=== PATIENT | male | born 1940 | race Caucasian/White ===

== ENCOUNTER 2016-06-17 08:04 | Outpatient (CLI) | payer MEDICARE, OTHER | END 2016-06-17 08:05 | disposition home or self-care (01) | DX: E78.5 Hyperlipidemia, unspecified (principal); N18.9 Chronic kidney disease, unspecified; I10 Essential (primary) hypertension ==

== ENCOUNTER 2016-06-17 08:06 | Outpatient (CLI) | payer MEDICARE, OTHER | END 2016-06-17 08:07 | disposition home or self-care (01) | DX: N40.1 Benign prostatic hyperplasia with lower urinary tract symptoms (principal); N20.0 Calculus of kidney; R31.0 Gross hematuria; R97.20 Elevated prostate specific antigen [PSA]; R33.9 Retention of urine, unspecified; R35.1 Nocturia ==

== ENCOUNTER 2017-03-19 08:00 | Outpatient (CLI) | payer MEDICARE, OTHER ==
[2017-03-19 12:55] LABS: BASOPHILS % (AUTO) 0.3 %; EOSINOPHILS # (AUTO) 0.1 10^3/uL (0.0-0.7); EOSINOPHILS % (AUTO) 2.2 %; HGB - HEMOGLOBIN 13.1 g/dL (14.0-18.0); LYMPHOCYTES # (AUTO) 1.9 10^3/uL (1.5-3.5); LYMPHOCYTES % (AUTO) 36.1 %; MEAN CORPUSCULAR HEMOGLOBIN 30.5 pg (27.0-31.0); MEAN CORPUSCULAR HGB CONC 33.3 g/dL (32.0-36.0); MEAN CORPUSCULAR VOLUME 91.6 fL (80.0-94.0); MEAN PLATELET VOLUME 8.9 fL (7.4-11.4); MONOCYTES # (AUTO) 0.3 10^3/uL (0.0-1.0); MONOCYTES % (AUTO) 5.3 %; NEUTROPHILS % (AUTO) 56.1 %; PLT - PLATELET COUNT 185 10^3/uL (130-450); RED BLOOD COUNT 4.31 10^6/uL (4.70-6.10); RED CELL DISTRIBUTION WIDTH 14.8 % (12.0-15.0); WHITE BLOOD COUNT 5.4 x10^3/uL (4.8-10.8)
[2017-03-19 13:00] LABS: ALBUMIN/GLOBULIN RATIO 1.3 (1.0-2.2); ALKALINE PHOSPHATASE 72 IU/L (42-121); ALT ALANINE AMINOTRANSFERASE 15 IU/L (10-60); AST ASPARTATE AMINOTRANSFERASE 19 IU/L (10-42); BILIRUBIN,TOTAL 0.5 mg/dL (0.2-1.0); BUN - BLOOD UREA NITROGEN 24 mg/dL (6-20); CALCIUM 8.6 mg/dL (8.5-10.3); CARBON DIOXIDE - CO2 24 mmol/L (21-32); CHLORIDE 108 mmol/L (101-111); CHOL/HDL RATIO 3.7 (<5.0); CHOLESTEROL 152 mg/dL; CREATININE 1.3 mg/dL (0.6-1.2); GFR - MDRD 54 (>89); GLUCOSE 101 mg/dL (70-100); HDL CHOLESTEROL 41 mg/dL; LDL CHOLESTEROL,CALCULATED 94 mg/dL; LDL/HDL RATIO 2.3 (<3.6); SODIUM 136 mmol/L (135-145); TOTAL PROTEIN 7.2 g/dL (6.7-8.2); VLDL CHOLESTEROL 17 mg/dL
== END 2017-03-19 08:01 | disposition home or self-care (01) ==
LOC: LAB.WCP 08:00
PROVIDERS: ATTEND Family Medicine
DX: I10 Essential (primary) hypertension (principal); R97.20 Elevated prostate specific antigen [PSA]; E78.5 Hyperlipidemia, unspecified
CPT/HCPCS: 36415; 80053; 80061; 83721; 84153; 85025

== ENCOUNTER 2018-02-19 14:14 | Emergency (ER) | payer MEDICARE, OTHER ==
--- NOTE | 2018-02-19 14:47 | XRAY Report ---
Reason: cough Procedure Date: 02/19/2018 Accession Number: [id number] / [id number] Procedure: XR - Chest 2 View X-Ray CPT Code: 81322 FULL RESULT: EXAM: CHEST RADIOGRAPHY EXAM DATE: 02/19/2018 02:38 PM. CLINICAL HISTORY: Cough. COMPARISON: None. TECHNIQUE: 2 views. FINDINGS: Lungs/Pleura: No focal opacities evident. No pleural effusion. No pneumothorax. Normal volumes. Mediastinum: Heart and mediastinal contours are unremarkable. Other: Intact median sternotomy wires. Incompletely included dual posterior fixation rods of the spine. Anterior wedging compression of L1, age indeterminate. IMPRESSION: No infiltrates. RADIA
--- NOTE | 2018-02-19 15:51 | ED Physician Documentation ---
PD HPI URI - Stated complaint Stated Complaint: CRACKLING WHEN COUGHING - Chief complaint Chief Complaint: Resp - History obtained from History obtained from: Patient - History of Present Illness Timing - onset: How many days ago (4) Timing duration: Days (4) Timing details: Still present Similar symptoms before: Has not had sx before - Additional information Additional information: The patient is a 78-year-old male who presents with cough of 4 days duration. His cough is productive of sputum. He denies fever, shortness of breath, or chest pain. No other family members are ill with similar symptoms. Review of Systems Constitutional: denies: Fever Ears: denies: Ear pain Nose: denies: Congestion Throat: denies: Sore throat Cardiac: denies: Chest pain / pressure Respiratory: reports: Cough. denies: Dyspnea GI: denies: Abdominal Pain, Nausea, Vomiting : denies: Dysuria Skin: denies: Rash Musculoskeletal: denies: Extremity swelling Neurologic: denies: Headache PD PAST MEDICAL HISTORY - Past Medical History Cardiovascular: Hypertension, Coronary artery disease Respiratory: None Endocrine/Autoimmune: None - Present Medications Home Medications: Ambulatory Orders Medication Instructions Recorded Confirmed Aspirin 02/19/18 02/19/18 Metoprolol Succinate 02/19/18 Naproxen Sodium [Aleve] 02/19/18 Rosuvastatin Calcium [Crestor] 02/19/18 Tamsulosin [Flomax] 02/19/18 guaiFENesin/CODEINE [Robitussin AC] 5 - 10 ml PO Q6H PRN #20 udc 02/19/18 - Allergies Allergies/Adverse Reactions: Allergies Allergy/AdvReac Type Severity Reaction Status Date / Time lisinopril Allergy Rash Verified 02/19/18 14:26 Iodinated Contrast- Oral and AdvReac Rash Verified 02/19/18 14:26 IV Dye - Social History Does the pt smoke?: No PD ED PE NORMAL - Vitals Vital signs reviewed: Yes (normal) - General General: Alert and oriented X 3, Well developed/nourished - HEENT HEENT: Atraumatic, EOMI, Pharynx benign, Other (Decreased hearing ability.) - Neck Neck: No adenopathy, No JVD - Cardiac Cardiac: RRR - Respiratory Respiratory: Other (Expiratory wheezes are noted bilaterally, without rales or rhonchi.) - Abdomen Abdomen: Soft, Non tender - Back Back: No CVA TTP - Derm Derm: No rash - Extremities Extremities: No edema, No calf tenderness / cord - Neuro Neuro: Alert and oriented X 3, No motor deficit, Normal speech Results - Vitals Vitals: Oxygen O2 Source Room air - Rads (name of study) CXR Radiology: Prelim report reviewed, EMP read contemporaneously, See rad report (No infiltrates.) PD MEDICAL DECISION MAKING - ED course Complexity details: reviewed results, re-evaluated patient, considered differential, d/w patient, d/w family ED course: The patient's presentation is most consistent with acute asthmatic bronchitis. Chest x-ray reveals no evidence of pneumonia or congestive heart failure. I doubt pulmonary embolus. Treatment in the emergency department included administration of dexamethasone 10 mg orally and DuoNeb nebulizer. Nebulizer had very slight impact on the patient's symptoms. He continues to have faint expiratory wheezes. It is unlikely that further treatment with albuterol would be of significant benefit. Antibiotics are not clinically indicated since this is most likely a viral infection. I discussed with the patient and his the expected course of illness, symptomatic treatment and outpatient follow-up, as well as potentially worrisome signs or symptoms that should prompt reevaluation in the emergency department. Departure - Departure Disposition: 01 Home, Self Care Clinical Impression: Acute bronchitis Qualifiers: Bronchitis organism: unspecified organism Qualified Code(s): J20.9 - Acute bronchitis, unspecified Condition: Stable Instructions: ED Bronchitis Asthmatic Follow-Up: BERNARD DONAHUE MD [Primary Care Provider] - Prescriptions: guaiFENesin/CODEINE [Robitussin AC] 5 - 10 ml PO Q6H PRN #20 udc PRN Reason: Cough Comments: You can use Tylenol or ibuprofen if needed for fever or discomfort. You can use Robitussin AC as prescribed if needed for cough. Follow-up with your primary physician within 2 weeks. Return to the emergency department if you develop increasing difficulty breathing, or otherwise worsening symptoms. Discharge Date/Time: 02/19/18 16:48
[2018-02-19] MEDS: IPRATROPIUM/ALBUTEROL 3 ML NEB INH STA (16:13)
[2018-02-19] MEDS ORDERED: CHERRY SYRUP 10 ML UDC PO ONE (16:41)
[2018-02-19] MEDS: DEXAMETHASONE 10 MG/ML VIAL PO STA (16:44)
[2018-02-19 16:46] VITALS: BP 114/81
== END 2018-02-19 16:48 | disposition home or self-care (01) ==
LOC: ED 14:14
DX: J20.9 Acute bronchitis, unspecified (principal); I10 Essential (primary) hypertension; Z79.82 Long term (current) use of aspirin
CPT/HCPCS: 71046; 94640; 99283; A9270

== ENCOUNTER 2018-03-05 09:35 | Outpatient (CLI) | payer MEDICARE, OTHER ==
[2018-03-05 13:39] LABS: BILIRUBIN,URINE NEGATIVE (NEGATIVE); GLUCOSE, URINE (UA) NEGATIVE (NEGATIVE); KETONES,URINE (UA) NEGATIVE (NEGATIVE); LEUKOCYTE ESTERASE, URINE NEGATIVE (NEGATIVE); NITRITE,URINE NEGATIVE (NEGATIVE); OCCULT BLOOD,URINE NEGATIVE (NEGATIVE); PROTEIN,URINE NEGATIVE (NEGATIVE); UROBILINOGEN,URINE 0.2 (NORMAL) E.U./dL (NORMAL)
[2018-03-05 13:51] LABS: BACTERIA,URINE Rare /HPF (None Seen); CLARITY,URINE CLEAR (CLEAR); RBC,URINE 0-5 /HPF (0-5); SQUAMOUS EPITHELIAL CELL,UR RARE Squamous (<= Few)
[2018-03-05 14:01] LABS: ALBUMIN 3.8 g/dL (3.2-5.5); ALBUMIN/GLOBULIN RATIO 1.1 (1.0-2.2); ALKALINE PHOSPHATASE 82 IU/L (42-121); ALT ALANINE AMINOTRANSFERASE 23 IU/L (10-60); AST ASPARTATE AMINOTRANSFERASE 23 IU/L (10-42); BILIRUBIN,TOTAL 0.7 mg/dL (0.2-1.0); BUN - BLOOD UREA NITROGEN 18 mg/dL (6-20); CALCIUM 8.6 mg/dL (8.5-10.3); CARBON DIOXIDE - CO2 23 mmol/L (21-32); CHLORIDE 105 mmol/L (101-111); CHOL/HDL RATIO 4.1 (<5.0); CHOLESTEROL 156 mg/dL; CREATININE 1.3 mg/dL (0.6-1.2); GFR - MDRD 53 (>89); GLUCOSE 102 mg/dL (70-100); HDL CHOLESTEROL 38 mg/dL; LDL CHOLESTEROL,CALCULATED 97 mg/dL; LDL/HDL RATIO 2.6 (<3.6); SODIUM 137 mmol/L (135-145); TOTAL PROTEIN 7.2 g/dL (6.7-8.2); VLDL CHOLESTEROL 21 mg/dL
== END 2018-03-05 23:59 | disposition home or self-care (01) ==
LOC: LAB.WCP 09:35
PROVIDERS: ATTEND Family Medicine
DX: I10 Essential (primary) hypertension (principal); C61 Malignant neoplasm of prostate; E78.5 Hyperlipidemia, unspecified; I25.10 Atherosclerotic heart disease of native coronary artery without angina pectoris
CPT/HCPCS: 36415; 80053; 80061; 81001; 83721; 84153

== ENCOUNTER 2023-05-05 07:16 | Outpatient (CLI) | payer MEDICARE, OTHER | END 2023-05-05 23:59 | disposition short-term general hospital (02) | LOC: EMS 07:16 | DX: R07.89 Other chest pain (principal); I44.0 Atrioventricular block, first degree | CPT/HCPCS: A0425; A0427; A0888 ==

== ENCOUNTER 2023-10-25 08:15 | Outpatient (CLI) | payer MEDICARE, OTHER | END 2023-10-25 23:59 | disposition EMS.NT | LOC: EMS 08:15 | DX: K59.00 Constipation, unspecified (principal) ==

== ENCOUNTER 2023-11-02 08:45 | Emergency (ER) | payer MEDICARE, OTHER ==
[2023-11-02 10:11] LABS: BASOPHILS % (AUTO) 0.3 %; EOSINOPHILS # (AUTO) 0.1 10^3/uL (0.0-0.7); EOSINOPHILS % (AUTO) 0.7 %; HCT - HEMATOCRIT 38.4 % (42.0-52.0); HGB - HEMOGLOBIN 12.7 g/dL (14.0-18.0); LYMPHOCYTES # (AUTO) 1.1 10^3/uL (1.5-3.5); LYMPHOCYTES % (AUTO) 11.6 %; MEAN CORPUSCULAR HGB CONC 33.1 g/dL (32.0-36.0); MEAN CORPUSCULAR VOLUME 90.8 fL (80.0-94.0); MEAN PLATELET VOLUME 9.4 fL (7.4-11.4); MONOCYTES # (AUTO) 0.6 10^3/uL (0.0-1.0); MONOCYTES % (AUTO) 6.4 %; NEUTROPHILS # (AUTO) 7.7 10^3/uL (1.5-6.6); NEUTROPHILS % (AUTO) 80.6 %; PLT - PLATELET COUNT 334 10^3/uL (130-450); RED BLOOD COUNT 4.23 10^6/uL (4.70-6.10); RED CELL DISTRIBUTION WIDTH 14.5 % (12.0-15.0); WHITE BLOOD COUNT 9.5 x10^3/uL (4.8-10.8)
[2023-11-02 10:24] LABS: ALBUMIN 3.7 g/dL (3.2-5.5); BILIRUBIN,TOTAL 0.5 mg/dL (0.2-1.0); CALCIUM 9.1 mg/dL (8.5-10.3); CREATININE 2.7 mg/dL (0.6-1.3); POTASSIUM 4.5 mmol/L (3.5-4.5); TOTAL PROTEIN 7.4 g/dL (6.4-8.9)
[2023-11-02 11:55] LABS: BILIRUBIN,URINE NEGATIVE (NEGATIVE); GLUCOSE, URINE (UA) NEGATIVE (NEGATIVE); KETONES,URINE (UA) NEGATIVE (NEGATIVE); LEUKOCYTE ESTERASE, URINE SMALL (NEGATIVE); NITRITE,URINE NEGATIVE (NEGATIVE); OCCULT BLOOD,URINE TRACE-INTA (NEGATIVE); PROTEIN,URINE NEGATIVE (NEGATIVE); UROBILINOGEN,URINE 0.2 (NORMAL) E.U./dL (NORMAL)
[2023-11-02 11:56] LABS: CLARITY,URINE CLEAR (CLEAR)
[2023-11-02 12:00] LABS: BACTERIA,URINE Few /HPF (None Seen); RBC,URINE 0-5 /HPF (0-5); SQUAMOUS EPITHELIAL CELL,UR NONE SEEN (<= Few); WBC CLUMPS,URINE PRESENT; WBC,URINE 0-3 /HPF (0-3)
--- NOTE | 2023-11-02 12:00 | ED Physician Documentation ---
History of Present Illness - Stated complaint Stated Complaint: ABD PX, - Chief complaint Chief Complaint: Abd Pain - Additonal information Additional information: Patient is an 83-year-old male presenting to the emergency department with s ymptoms of urinary retention. Patient has history of intermittent urinary retention secondary to enlarged prostate. Patient is to follow-up with urology but has not scheduled an appointment. Patient is an 83-year-old male presenting to the emergency department and has been on Keflex since Thursday after having a Bundy catheter removed after having urinary retention secondary to constipation that he was diagnosed with in urgent care last week. Patient had Bundy catheter removed after approximately 5 days. Patient was seen at [facility] and urgent care for these symptoms. He presents here to the emergency department today for persistent urinary retention. He has been compliant with his antibiotics of Keflex twice daily. Patient has history of intermittent urinary retention in the past. He denies any blood in his urine he has been having dribbling of urination and dysuria but denies any flank pain or fevers associated with his symptoms. PD PAST MEDICAL HISTORY - Past Medical History Past Medical History: Yes Cardiovascular: Hypertension, Coronary artery disease Respiratory: None Neuro: None Endocrine/Autoimmune: None GI: None : None HEENT: None Psych: None Musculoskeletal: Osteoarthritis Derm: None - Past Surgical History Past Surgical History: Yes Ortho: Hip replacement, Spine surgery, Other Cardiovascular: CABG - Present Medications Home Medications: Ambulatory Orders Medication Instructions Recorded Confirmed Aspirin 1 tab PO DAILY 02/19/18 11/02/23 Metoprolol Succinate 1 tab PO BID 02/19/18 11/02/23 Rosuvastatin Calcium [Crestor] 1 tab PO DAILY 02/19/18 11/02/23 Tamsulosin [Flomax] 1 cap PO DAILY 02/19/18 11/02/23 Acetaminophen [Tylenol] 1 tab PO PRN PRN 11/02/23 11/02/23 Ciprofloxacin HCl [Cipro] 500 mg PO BID 3 Days #6 tablet 11/02/23 Ezetimibe [Zetia] 1 tab PO DAILY 11/02/23 11/02/23 Omeprazole 1 tab PO DAILY 11/02/23 11/02/23 Tamsulosin [Flomax] 1 cap PO DAILY 11/02/23 11/02/23 cephALEXin [Keflex] 1 cap PO BID 11/02/23 11/02/23 traMADol [Ultram] 1 tab PO DAILY 11/02/23 11/02/23 - Allergies Allergies/Adverse Reactions: Allergies Allergy/AdvReac Type Severity Reaction Status Date / Time lisinopril Allergy Rash Verified 11/02/23 09:09 morphine Allergy Rash Verified 11/02/23 09:09 Iodinated Contrast Media AdvReac Rash Verified 11/02/23 09:09 [Iodinated Contrast- Oral and IV Dye] - Social History Does the pt smoke?: No Smoking Status: Never smoker Does the pt drink ETOH?: No Does the pt have substance abuse?: No - Immunizations Immunizations are current?: Yes - POLST Patient has POLST: No PD ED PE NORMAL - Vitals Vital signs reviewed: Yes - General General: Alert and oriented X 3 - HEENT HEENT: Atraumatic, Pharynx benign - Neck Neck: Supple, no meningeal sign - Cardiac Cardiac: RRR, No murmur, No gallop, No rub - Respiratory Respiratory: No respiratory distress, Clear bilaterally - Abdomen Abdomen: Normal bowel sounds, Soft, Other (Reproducible lower pelvic tenderness) - Derm Derm: Normal color, Warm and dry, No rash - Extremities Extremities: No deformity - Neuro Neuro: Alert and oriented X 3 Eye Opening: Spontaneous Motor: Obeys Commands Verbal: Oriented GCS Score: 15 Results - Vitals Vitals: Vital Signs - 24 hr 11/02/23 11/02/23 11/02/23 09:09 11:13 13:13 Temperature 36.8 C Heart Rate 69 86 62 Respiratory 16 16 18 Rate Blood Pressure 136/68 H 154/88 H 162/86 H O2 Saturation 95 100 96 Oxygen O2 Source Room air - Labs Labs: Laboratory Tests 11/02/23 11/02/23 11/02/23 10:04 10:04 11:42 WBC 9.5 RBC 4.23 L Hgb 12.7 L Hct 38.4 L MCV 90.8 MCH 30.0 MCHC 33.1 RDW 14.5 Plt Count 334 MPV 9.4 Neut # (Auto) 7.7 H Lymph # (Auto) 1.1 L [place] # (Auto) 0.6 Eos # (Auto) 0.1 Baso # (Auto) 0.0 Absolute Nucleated RBC 0.00 Nucleated RBC % 0.0 Sodium 131 L Potassium 4.5 Chloride 102 Carbon Dioxide 20 L Anion Gap 9.0 BUN 27 H Creatinine 2.7 H Estimated GFR (MDRD) 23 L Glucose 139 H Calcium 9.1 Total Bilirubin 0.5 AST 13 ALT 14 Alkaline Phosphatase 88 Total Protein 7.4 Albumin 3.7 Globulin 3.7 Albumin/Globulin Ratio 1.0 Lipase 19 Urine Color LT. YELLOW Urine Clarity CLEAR Urine pH 6.0 Ur Specific [place] <=1.005 Urine Protein NEGATIVE Urine Glucose (UA) NEGATIVE Urine Ketones NEGATIVE Urine Occult Blood TRACE-INTA Urine Nitrite NEGATIVE Urine Bilirubin NEGATIVE Urine Urobilinogen 0.2 (NORMAL) Ur Leukocyte Esterase SMALL H Urine RBC 0-5 Urine WBC 0-3 Urine WBC Clumps PRESENT Ur Squamous Epith Cells NONE SEEN Urine Bacteria Few Ur Microscopic Review INDICATED Urine Culture Comments INDICATED PD Medical Decision Making - ED course Complexity details: reviewed old records, reviewed results ED course: Patient is an 83-year-old male presenting to the emergency department and has been on Keflex since Thursday after having a Bundy catheter removed after having urinary retention secondary to constipation that he was diagnosed with in urgent care last week. Patient had Bundy catheter removed after approximately 5 days. Patient was seen at [facility] and urgent care for these symptoms. He presents here to the emergency department today for persistent urinary retention. He has been compliant with his antibiotics of Keflex twice daily. Patient has history of intermittent urinary retention in the past. He denies any blood in his urine he has been having dribbling of urination and dysuria but denies any flank pain or fevers associated with his symptoms.Vital stable on arrival patient is afebrile nontachycardic reproducible pelvic tenderness but no CVA tenderness. Normal active bowel sounds on auscultation.Basic labs obtained here in the emergency department showed no significant leukocytosis however there does appear to be elevated creatinine level at 2.7. Patient's baseline obtained from [facility] records after request shows creatinine of 1.8. Patient's creatinine elevated most likely secondary to urinary obstruction reassuring given no flank pain and no blood in urine no concerning findings for stones at this time. Additionally no unable to obtain records for urine cultures as no culture or urine sample was obtained on Thursday when patient was seen at urgent care to have Bundy catheter removed at that time. Family notes that he was prophylactically started on Keflex given previous history of UTIs after having Bundy catheter removed. Patient denies any flank pain or fevers at this time. Discussed with patient would like to replace Bundy catheter given bladder scan here in the emergency department shows urinary retention 1800 cc. Patient declining Bundy catheter placement here in emergency department he would like a straight catheter and to be discharged home with new antibiotic. Will start patient on ciprofloxacin here in emergency department given ANILA findings he does not meet criteria for Bactrim or Macrobid treatment. Will run urine and urine culture here in emergency department and call patient on follow-up on results. Departure - Departure Disposition: 01 Home, Self Care Clinical Impression: Urinary retention, Acute UTI, Abdominal pain Condition: Good Instructions: Abdominal Pain Prescriptions: Ciprofloxacin HCl [Cipro] 500 mg PO BID 3 Days #6 tablet Comments: You were seen here in the emergency department for your urinary retention most likely secondary to a UTI I have started you on antibiotics and you should stop taking your Keflex antibiotics. You should return with any worsening urinary retention difficulty urinating fevers flank pain worsening abdominal pain nausea vomiting or any other new or worsening symptoms. Please take antibiotics as prescribed and return with any other new or worsening symptomsFollow-up with urology in outpatient as scheduled you may require chronic Bundy catheter placement. Forms: PCP List
[2023-11-02] MEDS: CIPROFLOXACIN 250 MG TABLET PO STA (14:46)
[2023-11-02 15:09] VITALS: BP 152/86; O2SAT 98
== END 2023-11-02 14:59 | disposition home or self-care (01) ==
LOC: ED 08:45
DX: N39.0 Urinary tract infection, site not specified (principal); R33.9 Retention of urine, unspecified; R10.9 Unspecified abdominal pain; I10 Essential (primary) hypertension; Z79.82 Long term (current) use of aspirin; Z79.899 Other long term (current) drug therapy
CPT/HCPCS: 36415; 51701; 80053; 81001; 83690; 85025; 87086; 99283; 99284; A9270; 81003

== ENCOUNTER 2023-11-04 06:45 | Emergency (ER) | payer MEDICARE, OTHER ==
--- NOTE | 2023-11-04 07:46 | ED Physician Documentation ---
History of Present Illness - Stated complaint Stated Complaint: - Chief complaint Chief Complaint: General - History obtained from History obtained from: Patient, Family - Additonal information Additional information: The patient comes to the emergency department with his for chief complaint of recurrent urinary retention. The patient has a history of prostatic enlargement and states that the episodes of retention started a few weeks ago when the patient took a fall and tore his rotator cuff. He was placed on hydrocodone for pain at that time and began having trouble with urinary r etention and constipation. The constipation has resolved but the patient has had a long going and repetitive need for indwelling Bundy catheter. He is scheduled to see his urologist tomorrow, but after a trial of going without the catheter starting a couple of days ago, the patient has not urinated more than an ounce, the thinks, and has been having a lot of discomfort. No fevers or chills. He was placed on prophylactic Keflex followed by prophylactic Cipro which she is currently taking. states he was seen 2 days ago for urinary retention at which time her daughter did not want the patient to have an indwelling catheter and so the patient went home to try to urinate on his own. The states she would like the patient to have an indwelling Bundy again. PD PAST MEDICAL HISTORY - Past Medical History Past Medical History: Yes Cardiovascular: Hypertension, Coronary artery disease Respiratory: None Neuro: None Endocrine/Autoimmune: None GI: None : None HEENT: None Psych: None Musculoskeletal: Osteoarthritis Derm: None - Past Surgical History Past Surgical History: Yes Ortho: Hip replacement, Spine surgery, Other Cardiovascular: CABG - Present Medications Home Medications: Ambulatory Orders Medication Instructions Recorded Confirmed Aspirin 1 tab PO DAILY 02/19/18 11/02/23 Metoprolol Succinate 1 tab PO BID 02/19/18 11/02/23 Rosuvastatin Calcium [Crestor] 1 tab PO DAILY 02/19/18 11/02/23 Tamsulosin [Flomax] 1 cap PO DAILY 02/19/18 11/02/23 Acetaminophen [Tylenol] 1 tab PO PRN PRN 11/02/23 11/02/23 Ciprofloxacin HCl [Cipro] 500 mg PO BID 3 Days #6 tablet 11/02/23 Ezetimibe [Zetia] 1 tab PO DAILY 11/02/23 11/02/23 Omeprazole 1 tab PO DAILY 11/02/23 11/02/23 Tamsulosin [Flomax] 1 cap PO DAILY 11/02/23 11/02/23 cephALEXin [Keflex] 1 cap PO BID 11/02/23 11/02/23 traMADol [Ultram] 1 tab PO DAILY 11/02/23 11/02/23 - Allergies Allergies/Adverse Reactions: Allergies Allergy/AdvReac Type Severity Reaction Status Date / Time lisinopril Allergy Rash Verified 11/04/23 06:56 morphine Allergy Rash Verified 11/04/23 06:56 Iodinated Contrast Media AdvReac Rash Verified 11/04/23 06:56 [Iodinated Contrast- Oral and IV Dye] - Social History Does the pt smoke?: No Smoking Status: Never smoker Does the pt drink ETOH?: No Does the pt have substance abuse?: No - Immunizations Immunizations are current?: Yes - POLST Patient has POLST: No PD ED PE NORMAL - Vitals Vital signs reviewed: Yes - General General: No acute distress, Well developed/nourished, Other (Alert, very hard of hearing but grossly appropriate and oriented.) - HEENT HEENT: Atraumatic, EOMI, Moist mucous membranes - Neck Neck: Supple, no meningeal sign - Respiratory Respiratory: No respiratory distress - Abdomen Abdomen: Soft, Non tender, Non distended, Other (Bladder has already been drained with Bundy at the time of my exam) - Male Male : Other (Bundy already placed by nursing staff and draining dark yellow urine, 1300 cc so far.) - Derm Derm: Normal color, Warm and dry, No rash - Extremities Extremities: No deformity - Neuro Neuro: Alert and oriented X 3 - Psych Psych: Normal mood, Normal affect Results - Vitals Vitals: Vital Signs - 24 hr 11/04/23 06:56 Temperature 36.6 C Heart Rate 78 Respiratory 18 Rate Blood Pressure 133/58 H O2 Saturation 97 Oxygen O2 Source Room air PD Medical Decision Making - ED course Complexity details: considered differential, d/w patient, d/w family ED course: Bladder scan revealed 1300 cc of urine in the patient's bladder and Bundy catheter was placed and drained easily. Urine was dark yellow and without visible blood. The patient was given a leg bag and I have advised the patient and to continue the antibiotics until they see urology tomorrow. Departure - Departure Disposition: 01 Home, Self Care Clinical Impression: Urinary retention Condition: Stable Instructions: ED Retention Urinary Male Comments: Please leave the Bundy in place until you see the the urologist tomorrow. Please also continue your antibiotics for now until further guidance is obtained from urology. Please drink plenty of water to keep your bladder flushing.
[2023-11-04 08:14] VITALS: BP 136/88; O2SAT 94
== END 2023-11-04 08:12 | disposition home or self-care (01) ==
LOC: ED 06:45
DX: R33.9 Retention of urine, unspecified (principal)
CPT/HCPCS: 51702; 99283